=== PATIENT | male | born 1945 | race Hispanic/Latino ===

== ENCOUNTER 2020-11-23 14:20 | Emergency (ER) | payer OTHER ==
[2020-11-23] MEDS ORDERED: NA CHLORIDE 0.9% 1,000 ML ONE (15:26)
[2020-11-23 16:09] LABS: Absolute Lymphocytes (CBC) 1.7 K/uL (0.7-4.9); Basophils % 0.6 % (0-1.3); Hematocrit 42.3 % (39.6-49.0); Lymphocytes % 11.3 % (15.3-44.8); MPV 8.8 fL (7.6-11.3); RBC Red Blood Cell Count 4.68 M/uL (4.33-5.43)
[2020-11-23 16:10] LABS: Potassium 4.5 mmol/L (3.5-5.1)
--- NOTE | 2020-11-23 16:13 | RAD REPORT ---
EXAM DESCRIPTION: RAD - Pelvis - 11/23/2020 3:19 pm CLINICAL HISTORY: BLUNT TRAUMA COMPARISON: SCROTUM TESTICLES dated 12/16/2013 FINDINGS: No acute fracture. No malalignment. Mild bilateral acetabular degenerative changes. IMPRESSION: No acute osseous abnormality involving the pelvis.
--- NOTE | 2020-11-23 16:13 | RAD REPORT ---
EXAM DESCRIPTION: RAD - Hip Left 2 View - 11/23/2020 3:19 pm CLINICAL HISTORY: PAIN COMPARISON: No comparisons FINDINGS: No acute fracture. No malalignment. Left acetabular overgrowth. IMPRESSION: No acute osseous abnormality involving the .
--- NOTE | 2020-11-23 16:13 | RAD REPORT ---
EXAM DESCRIPTION: RAD - Ankle Left 3 View - 11/23/2020 3:19 pm CLINICAL HISTORY: PAIN COMPARISON: No comparisons FINDINGS: No acute fracture. No malalignment. No significant focal degenerative changes. IMPRESSION: No acute osseous abnormality involving the left ankle.
--- NOTE | 2020-11-23 16:32 | RAD REPORT ---
EXAM DESCRIPTION: RAD - Foot Left 3 View - 11/23/2020 4:16 pm CLINICAL HISTORY: PAIN COMPARISON: Ankle Left 3 View dated 11/23/2020; Hip Left 2 View dated 11/23/2020; Pelvis dated 11/24/19 21 FINDINGS: Deformity of the calcaneus which is not well assessed due to overlapping bony structures. No definite acute fractures identified. IMPRESSION: Calcaneal deformity. Cannot exclude acute fracture. Correlate with patient's site of sam n. CT could better evaluate if clinically indicated.
[2020-11-23] MEDS ORDERED: MORPHINE 2 MG/ML SYR ONE ×2 (16:48→18:13)
[2020-11-23] MEDS ORDERED: ONDANSETRON 4 MG/2 ML VIAL ONE (16:48)
--- NOTE | 2020-11-23 17:40 | RAD REPORT ---
EXAM DESCRIPTION: CT - Foot Left Wo Con - 11/23/2020 5:25 pm CLINICAL HISTORY: foot pain COMPARISON: No comparisons FINDINGS: Highly comminuted calcaneal fracture with extension to the subtalar joint and anterior pro cess of the calcaneus. The fracture is centered primarily within the mid third of the calcaneus. Ther e is a fracture off of the lateral process of the talus as well. No tendon entrapment is identified. There are no large fragments in the subtalar joint. IMPRESSION: Highly comminuted calcaneal fracture.
--- NOTE | 2020-11-23 17:41 | EDPHYS ---
Physician Documentation [facility] Name: Khoa Diego Age: 75 yrs Sex: Male : 1945 Arrival Date: 11/23/2020 Time: 14:21 Bed 12 Private MD: ED Physician Geoffrey Frankel HPI: 11/23 16:54 This 75 yrs old Male presents to ER via Wheelchair with complaints of Fall lynnette Injury - Ankle Injury. 16:54 Details of fall: The patient fell from a height, from a ladder, approximately 6 feet. lynnette Onset: The symptoms/episode began/occurred just prior to arrival. Associated injuries: The patient sustained lateral side of left heel, left lateral malleolus, left medial malleolus and heel of left foot, painful injury, swelling. Severity of symptoms: At their worst the symptoms were moderate, in the emergency department the symptoms are unchanged. The patient has not experienced similar symptoms in the past. Historical: - Allergies: 14:34 No Known Allergies; aa5 - PMHx: 14:34 Hypertensive disorder; aa5 - PSHx: 14:34 prostate sx; aa5 - Immunization history:: Adult Immunizations unknown. - Social history:: Smoking status: Patient reports the use of cigarette tobacco products, smokes one-half pack cigarettes per day. ROS: 16:55 Constitutional: Negative for fever, chills, and weight loss, Eyes: Negative for injury, lynnette pain, redness, and discharge, ENT: Negative for injury, pain, and discharge, Neck: Negative for injury, pain, and swelling, Cardiovascular: Negative for chest pain, palpitations, and edema, Respiratory: Negative for shortness of breath, cough, wheezing, and pleuritic chest pain, Abdomen/GI: Negative for abdominal pain, nausea, vomiting, diarrhea, and constipation, Back: Negative for injury and pain, : Negative for injury, bleeding, discharge, and swelling, Skin: Negative for injury, rash, and discoloration, Neuro: Negative for headache, weakness, numbness, tingling, and seizure, Psych: Negative for depression, anxiety, suicide ideation, homicidal ideation, and hallucinations, Allergy/Immunology: Negative for hives, rash, and allergies, Endocrine: Negative for neck swelling, polydipsia, polyuria, polyphagia, and marked weight changes. 16:55 MS/extremity: Positive for decreased range of motion, pain, swelling, tenderness, of the left lateral malleolus, left medial malleolus and heel of left foot. Exam: 16:55 Constitutional: This is a well developed, well nourished patient who is awake, alert, lynnette and in no acute distress. Head/Face: Normocephalic, atraumatic. Eyes: Pupils equal round and reactive to light, extra-ocular motions intact. Lids and lashes normal. Conjunctiva and sclera are non-icteric and not injected. Cornea within normal limits. Periorbital areas with no swelling, redness, or edema. ENT: Nares patent. No nasal discharge, no septal abnormalities noted. Tympanic membranes are normal and external auditory canals are clear. Oropharynx with no redness, swelling, or masses, exudates, or evidence of obstruction, uvula midline. Mucous membranes moist. Neck: Trachea midline, no thyromegaly or masses palpated, and no cervical lymphadenopathy. Supple, full range of motion without nuchal rigidity, or vertebral point tenderness. No Meningismus. Chest/axilla: Normal chest wall appearance and motion. Nontender with no deformity. No lesions are appreciated. Cardiovascular: Regular rate and rhythm with a normal S1 and S2. No gallops, murmurs, or rubs. Normal PMI, no JVD. No pulse deficits. Respiratory: Lungs have equal breath sounds bilaterally, clear to auscultation and percussion. No rales, rhonchi or wheezes noted. No increased work of breathing, no retractions or nasal flaring. Abdomen/GI: Soft, non-tender, with normal bowel sounds. No distension or tympany. No guarding or rebound. No evidence of tenderness throughout. Back: No spinal tenderness. No costovertebral tenderness. Full range of motion. Male : Normal genitalia with no discharge or lesions. Skin: Warm, dry with normal turgor. Normal color with no rashes, no lesions, and no evidence of cellulitis. Neuro: Awake and alert, GCS 15, oriented to person, place, time, and situation. Cranial nerves II-XII grossly intact. Motor strength 5/5 in all extremities. Sensory grossly intact. Cerebellar exam normal. Normal gait. Psych: Awake, alert, with orientation to person, place and time. Behavior, mood, and affect are within normal limits. 16:55 Musculoskeletal/extremity: ROM: full passive range of motion, limited active range of motion, Circulation is intact in all extremities. Sensation intact. Compartment Syndrome exam of affected extremity: is normal. Joints: the left ankle displays effusion, limited range of motion, painful range of motion, swelling, tenderness, DVT Exam: negative Homans' sign noted on exam, no appreciated bluish discoloration, no erythema, no increased warmth, pain, swelling, tenderness. Vital Signs: 14:32 BP 153 / 74; Pulse 99; Resp 18 S; Temp 98.0(TE); Pulse Ox 99% on R/A; Weight 78.02 kg aa5 (R); Height 5 ft. 6 in. (167.64 cm) (R); 19:08 BP 147 / 73; Pulse 85; Resp 18; Pulse Ox 98% on R/A; Pain 5/10; lh3 14:32 Body Mass Index 27.76 (78.02 kg, 167.64 cm) aa5 MDM: 14:[address] [facility] 16:57 Differential diagnosis: hip fracture, intertrochanteric fracture, femoral neck lynnette fracture, femoral shaft fracture, strain. Differential diagnosis: contusion, fracture, sprain, strain. Data reviewed: vital signs, nurses notes, lab test result(s), radiologic studies, plain films. Data interpreted: classification counselor: rate is 99 beats/min, rhythm is regular, Pulse oximetry: on room air is 99 %. Test interpretation: by ED physician or midlevel provider: plain radiologic studies. Counseling: I had a detailed discussion with the patient and/or guardian regarding: the historical points, exam findings, and any diagnostic results supporting the discharge/admit diagnosis, lab results, radiology results. 11/23 14:50 Order name: Basic Metabolic Panel; Complete Time: 16:51 [facility] 11/23 14:50 Order name: CBC with Diff; Complete Time: 16:51 [facility] 11/23 14:50 Order name: Type And Screen; Complete Time: 17:41 [facility] 11/23 14:50 Order name: Ankle Left 3 View XRAY; Complete Time: 16:51 [facility] 11/23 19:21 Order name: ABO/RH no charge EDMS 11/23 14:50 Order name: Labs collected and sent; Complete Time: 16:40 [facility] 11/23 14:50 Order name: Pelvis XRAY; Complete Time: 16:51 lynnette 11/23 14:50 Order name: Hip Left 2 View XRAY; Complete Time: 16:51 [facility] 11/23 15:50 Order name: Foot Left 3 View XRAY; Complete Time: 16:51 [facility] 11/23 16:57 Order name: Foot Left Wo Con EDMS 11/23 16:58 Order name: Labs - recollect needed: collect abo/rh no charge; Complete Time: 17:34 bd 11/23 17:37 Order name: Splint - Ankle: Posterior: well padded; Complete Time: 19:08 lynnette 11/23 18:21 Order name: Crutches; Complete Time: 19:07 [facility] Administered Medications: 16:00 Drug: NS 0.9% 1000 ml Route: IV; Rate: 125 ml/hr; Site: left antecubital; kg 16:20 Drug: morphine 2 mg Route: IVP; Site: left antecubital; kg 16:20 Drug: Zofran (Ondansetron) 4 mg Route: IVP; Site: left antecubital; kg 19:08 Follow up: Response: No adverse reaction lh3 18:20 Drug: morphine 2 mg Route: IVP; Site: left antecubital; kg 19:08 Follow up: Response: No adverse reaction; Pain is decreased lh3 Disposition Summary: 11/23/20 18:24 Discharge Ordered Location: Home lynnette Problem: new(11/23/20 18:24) lynnette Symptoms: have improved(11/23/20 18:24) lynnette Condition: Stable(11/23/20 18:24) lynnette Diagnosis - Fracture of calcaneus(11/23/20 18:24) lynnette - Fall (on) (from) unspecified stairs and steps(11/23/20 18:24) lynnette - Sprain of ankle lynnette Followup: lynnette - With: Private Physician - When: 2 - 3 days - Reason: Recheck today's complaints, Continuance of care, Re-evaluation by your physician Discharge Instructions: - Discharge Summary Sheet lynnette - Calcaneal Fracture Repair Surgery lynnette - How to Use a Wheelchair lynnette - Foot Pain lynnette - Calcaneal Fracture Repair Surgery, Care After lynnette Forms: - Medication Reconciliation Form lynnette - Thank You Letter lynnette - Antibiotic Education lynnette - Prescription Opioid Use lynnette Prescriptions: - Wheelchair - One wheelchair unit; ; Refills: 0, Product Selection Permitted lynnette - Tylenol-Codeine #3 300 mg-30 mg Oral - take 2 tablet by ORAL route every 4-6 hours; 24 tablet; Refills: 0, Product lynnette Selection Permitted Signatures: Dispatcher [employer] EDSoha Velazquez Corey, MD MD cha Calderon, Audri RN RN aa5 Lynne Mariano RN RN kg Traci Toribio RN lh3 Corrections: (The following items were deleted from the chart) 17:43 17:40 to slh/ ortho lynnette lynnette 18:20 17:40 [facility] lynnette lynnette 18:20 17:40 Higher level of care lynnette lynnette 18:20 17:40 Stable lynnette lynnette 18:20 17:40 new lynnette lynnette 18:20 17:40 have improved lynnette lynnette 18:20 17:40 Fracture of calcaneus - comminuted, closed, intractable pain lynnette lynnette 18:20 17:43 to slh/ ortho lynnette lynnette 18:20 17:43 Fall (on) (from) unspecified stairs and steps lynnette lynnette 18:20 17:43 Elevated white blood cell count, unspecified lynnette lynnette 18:20 17:43 Abnormal results of kidney function studies - insufficency lynnette lynnette
--- NOTE | 2020-11-23 17:41 | ER ---
Nurse's Notes [facility] Name: Khoa Diego Age: 75 yrs Sex: Male : 1945 Arrival Date: 11/23/2020 Time: 14:21 Bed 12 Private MD: Diagnosis: Fracture of calcaneus;Fall (on) (from) unspecified stairs and steps;Sprain of ankle Presentation: 11/23 14:32 Chief complaint: Patient states: "I was on a 6ft ladder cutting a tree branch and the aa5 branch fell and knocked me off the ladder". Pt c/o left ankle pain and left hip pain, denies head injury. Coronavirus screen: At this time, the client does not indicate any symptoms associated with coronavirus-19. Ebola Screen: Patient negative for fever greater than or equal to 101.5 degrees Fahrenheit, and additional compatible Ebola Virus Disease symptoms. Initial Sepsis Screen: Does the patient meet any 2 criteria? No. Patient's initial sepsis screen is negative. Does the patient have a suspected source of infection? No. Patient's initial sepsis screen is negative. Risk Assessment: Do you want to hurt yourself or someone else? Patient reports no desire to harm self or others. Onset of symptoms was November 23, 2020. 14:32 Method Of Arrival: Wheelchair aa5 14:32 Acuity: BERNARDO 4 aa5 15:08 Acuity: BERNARDO 3 iw Triage Assessment: 19:09 General: Appears in no apparent distress. Behavior is calm, cooperative, appropriate lh3 for age, quiet. Pain: Complains of pain in left ankle Pain currently is 10 out of 10 on a pain scale. Quality of pain is described as aching, throbbing. Historical: - Allergies: 14:34 No Known Allergies; aa5 - PMHx: 14:34 Hypertensive disorder; aa5 - PSHx: 14:34 prostate sx; aa5 - Immunization history:: Adult Immunizations unknown. - Social history:: Smoking status: Patient reports the use of cigarette tobacco products, smokes one-half pack cigarettes per day. Screenin:08 Abuse screen: Denies threats or abuse. Denies injuries from another. Nutritional lh3 screening: No deficits noted. Tuberculosis screening: No symptoms or risk factors identified. Fall Risk None identified. Assessment: 15:30 Pain: Complains of pain in left ankle Pain currently is 10 out of 10 on a pain scale. lh3 at worst was 10 out of 10 on a pain scale. Injury Description: Deformity sustained to left ankle. Vital Signs: 14:32 BP 153 / 74; Pulse 99; Resp 18 S; Temp 98.0(TE); Pulse Ox 99% on R/A; Weight 78.02 kg aa5 (R); Height 5 ft. 6 in. (167.64 cm) (R); 19:08 BP 147 / 73; Pulse 85; Resp 18; Pulse Ox 98% on R/A; Pain 5/10; lh3 14:32 Body Mass Index 27.76 (78.02 kg, 167.64 cm) aa5 ED Course: 14:21 Patient arrived in ED. ds1 14:32 Arm band placed on. aa5 14:34 Triage completed. aa5 14:48 Geoffrey Frankel MD is Attending Physician. lynnette 14:57 Lynne Mariano, RN is Primary Nurse. kg 15:19 Ankle Left 3 View XRAY In Process Unspecified. EDMS 15:19 Pelvis XRAY In Process Unspecified. EDMS 15:19 Hip Left 2 View XRAY In Process Unspecified. EDMS 16:16 Foot Left 3 View XRAY In Process Unspecified. EDMS 16:49 Repeat lab(s) drawn. by me, sent to lab. jl7 17:25 Foot Left Wo Con In Process Unspecified. EDMS 19:08 Patient has correct armband on for positive identification. lh3 19:10 Assist provider with fracture care of left foot and left ankle Immobilized with. lh3 19:10 Orthoglass splint: Posterior short lleg splint applied on left leg. lh3 19:12 IV discontinued, intact, bleeding controlled, No redness/swelling at site. Pressure lh3 dressing applied. Administered Medications: 16:00 Drug: NS 0.9% 1000 ml Route: IV; Rate: 125 ml/hr; Site: left antecubital; kg 16:20 Drug: morphine 2 mg Route: IVP; Site: left antecubital; kg 16:20 Drug: Zofran (Ondansetron) 4 mg Route: IVP; Site: left antecubital; kg 19:08 Follow up: Response: No adverse reaction lh3 18:20 Drug: morphine 2 mg Route: IVP; Site: left antecubital; kg 19:08 Follow up: Response: No adverse reaction; Pain is decreased lh3 Outcome: 17:40 ER care complete, transfer ordered by . lynnette 18:24 Discharge ordered by . lynnette 19:11 Discharged to home with crutches, with family. 3 19:11 Condition: improved 19:11 Discharge instructions given to patient, family, Instructed on discharge instructions, follow up and referral plans. Demonstrated understanding of instructions, follow-up care, medications, Prescriptions given X 2. 19:34 Patient left the ED. wg Signatures: Dispatcher [employer] EDMS Geoffrey Frankel MD MD cha Sanford, Demi ds1 Griselda Villar, RN RN iw Era Berry RN RN aa5 Bernice Briones RN RN jl7 Lynne Mariano RN RN kg Traci Toribio RN RN lh3 Wesley Dick RN
[2020-11-23 20:20] VITALS: TEMP 98
[2020-11-23 20:21] VITALS: BP 147/73; O2SAT 98
== END 2020-11-23 19:34 | disposition home or self-care (01) ==
LOC: ER 14:20
PROC: 2W3RX1Z Immobilization of Left Lower Leg using Splint (ICD-10-PCS; principal; 2020-11-23)
DX: S92.002A Unspecified fracture of left calcaneus, initial encounter for closed fracture (principal); W11.XXXA Fall on and from ladder, initial encounter; I10 Essential (primary) hypertension; F17.210 Nicotine dependence, cigarettes, uncomplicated
CPT/HCPCS: 85025; 80048; 36415; 86900; 86850; 86901; 73700; 72170; 73502; 73630; 73610; 96375; 96374; 99284; 29515; J2270 ×2; J7030; J2405